=== PATIENT | male | born 1975 | race Caucasian/White ===

== ENCOUNTER → 2017-05-31 | Day surgery (SDC) | payer BC ==
[~2017-05-31] VITALS: Ht 190.5 cm; Wt 107.0 kg
[~2017-05-31] MED LIST: ASPI81CH CHEW; BUPIVACAINE HCL PF 0.5% 30 ML VIAL ONE; CEPH-460 PO; CHLORHEXIDINE GLUCONATE 2 % 1 PACK (2 CLOTHS) TOPICAL PRN; INSULIN HUMAN REGULAR 1,000 UNITS/10 ML VIAL SQ PRN; LACTATED RINGER'S 1000 ML IV PRN; LIDOCAINE HCL 2% 50 ML VIAL ONE; METOPROLOL TARTRATE 25 MG TAB PO PRN; MIDAZOLAM HCL 2 MG/2 ML VIAL ONE; MULTTAB67 PO; NEOMYCIN/POLYMYXIN 1 ML G.U. IRRIGANT ONE; NEOMYCIN/POLYMYXIN 1 ML G.U. IRRIGANT TOPICAL ONE; NORC5TAB PO; ONDANSETRON HCL 4 MG/2 ML VIAL IV PUSH ONE; POVIDONE IODINE 5% (ANTISEPSIS KIT) 4 APPLICATIONS EACH NARE PRN; PROPOFOL 200 MG/20 ML AMP IV ONE; SODIUM CHLORID 0.9% 500 ML IV PRN; ceFAZolin 1,000 MG/NS 100 ML IV SCH; ceFAZolin INJ 1,000 MG VIAL ONE
[2017-05-31 06:52] VITALS: BP 130/82; PULSE 69; RESP 18; TEMP 98.5; O2SAT 95
[2017-05-31 06:52] LABS: HEMATOCRIT 44.2 % (39.0-51.0); MEAN CELL VOLUME 88.6 FL (80.0-100.0); MEAN CORPUSCULAR HEMOGLOBIN 29.1 PG (27.0-34.0); MEAN CORPUSCULAR HGB CONC 32.9 % (32.0-36.0); PLATELET COUNT 208 TH/MM3 (150-450); RED BLOOD COUNT 4.99 MIL/MM3 (4.50-5.90); RED CELL DISTRIBUTION WIDTH 13.1 % (11.6-17.2); REVIEW FLAG FINAL; WHITE BLOOD COUNT 9.9 TH/MM3 (4.0-11.0)
[2017-05-31 10:00] VITALS: BP 116/76; PULSE 64; RESP 16; TEMP 98; O2SAT 97
--- NOTE | 2017-06-01 18:00 | MP ---
cc: MINNA HIGHTOWER MD DATE OF SURGERY 05/31/17 PREOPERATIVE DIAGNOSIS Right index finger mass. PROCEDURE Right index finger mass excisional biopsy. SURGEON Ronaldo Hightower III, MD PROCEDURE IN DETAIL The patient was brought to the operating placed supine on the operating table. After the correct site and side of surgery were verified by members of each team in the room multiple times including the patient and myself and after adequate preop markings and preoperative written consent were verified by everyone and after adequate preoperative time-out was performed to everyone's satisfaction, after adequate IV sedation had been achieved, the right upper extremity was prepped and draped in traditional sterile surgical fashion. A 50/50 mixture of 2% plain lidocaine and 0.5% plain Marcaine was infiltrated in the skin at the base of the index finger for index finger digital block, Two small fingers from a sterile glove were used to make a finger tourniquet. An elliptical shaped incision including the attenuated skin was made and carried down through the dermis and then sharp dissection was continued and the mass was excised in its entirety and passed off the field as a specimen. Small amount of turbid fluid was encountered and this was sent for a culture. There was no evidence of any bony involvement. There was no evidence of any extension. There was a finite cavity. Thorough irrigation with saline was performed. The skin edges was then tailored to a precise closure with more attenuated skin excised and the skin edges reapproximated using interrupted 5-0 nylon suture. The hand and arm were thoroughly cleansed and dried. Betadine Adaptic dressing was applied on top of the wound. The finger tourniquet was released and the finger became immediately soft, pink and warm and brisk capillary refill of less than 2-seconds. A bulky dressing was applied. The patient was awakened from anesthesia and transported to the Post Anesthesia Care Unit awake in stable condition. At the end of the case, sponge, needle and instrument counts were correct at the end of the case as reported by nurses in the room. MD ESTELLA Bolanos III/ /8:50 AM /5:47 PM
== END | disposition home or self-care (01) ==
LOC: PHSDC 06:06
PROVIDERS: ATTEND Orthopaedic Surgery Hand Surgery
DX: C44.622 Squamous cell carcinoma of skin of right upper limb, including shoulder (principal); F17.210 Nicotine dependence, cigarettes, uncomplicated
CPT/HCPCS: 00400; 11621; 36415; 85027; 87015; 87070; 87102; 87116; 87205; 87206; 88305; J0690; J2250; J2405; J3010; J7120